=== PATIENT | female | born 1990 | race Caucasian/White ===

== ENCOUNTER 2019-07-19 10:55 | Inpatient (IN) | payer OTHER ==
[2019-07-19 11:20] VITALS: BMI 28.8
--- NOTE | 2019-07-19 12:17 | HP ---
CIWA Score - Admission Criteria [facility] Guidelines: Admission for Medically Managed Detox: Requires at least one of the followin. CIWA greater than 12 2. Seizures within the past 24 hours 3. Delirium tremens within the past 24 hours 4. Hallucinations within the past 24 hours 5. Acute intervention needed for co occurring medical disorder 6. Acute intervention needed for co occurring psychiatric disorder 7. Severe withdrawal that cannot be handled at a lower level of care (continued vomiting, continued diarrhea, abnormal vital signs) requiring intravenous medication and/or fluids 8. Admission ROS S - HPI Allergies/Adverse Reactions: Allergies Allergy/AdvReac Type Severity Reaction Status Date / Time No Known Allergies Allergy Verified 07/19/19 11:13 History of Present Illness: 29 y.o. TG M2F pt here requesting rehab from crystal methamphetamine since 3 years ago , iv since 1 yr ago ,latest use Monday cannabis - " not a lot " since age 18 tobacco : 06/29 ppd pmhx : hiv dx 2017 (rf=-st) clinic in [place] , not in [place] reports non- compliance w / meds , latest rx was in October 2018 while living in [place] , has been in [place] since and has not seen ID , on HRT [place] years ago pshx ; breast implants , nose surgery , liposuction ,left rib frx 1 yrs ago psych ; denies , denies current SI /HI . shx : lives in jail Exam Limitations: No Limitations - Ebola screening Have you traveled outside of the country in the last 21 days: No Have you had contact with anyone from an Ebola affected area: No Do you have a fever: No - Review of Systems Constitutional: Loss of Appetite EENT: reports: Other (myopia) Respiratory: reports: SOB with Exertion (x 1 year) Cardiac: reports: No Symptoms Reported GI: reports: No Symptoms Reported : reports: Other (hesitancy when using crystal metamphetamine) Musculoskeletal: reports: No Symptoms Reported Integumentary: reports: No Symptoms Reported Neuro: reports: No Symptoms reported Endocrine: reports: See HPI Hematology: reports: No Symptoms Reported Psychiatric: reports: Mood/Affect Appropiate, Orientated x3 Patient History - Smoking Cessation Smoking history: Current every day smoker Have you smoked in the past 12 months: Yes Hx Chewing Tobacco Use: No Initiated information on smoking cessation: Yes 'Breaking Loose' booklet given: 07/19/19 - Substances abused Methamphetamine Other (specify): crystal metamphetamine Substance route: Injection Frequency: Daily Amount used: 1.5grams Age of first use: 26 Date of last use: 07/16/19 Admission Physical Exam [facility] - Vital Signs Vital Signs: Vital Signs - 24 hr 07/19/19 11:09 Temperature 98.2 F Pulse Rate 85 Respiratory 18 Rate Blood Pressure 148/75 - Physical General Appearance: Yes: Mild Distress, Anxious HEENTM: Yes: EOMI, Hearing grossly Normal, Normocephalic, Normal Voice Respiratory: Yes: Chest Non-Tender, Lungs Clear, Normal Breath Sounds, No Respiratory Distress, No Accessory Muscle Use Neck: Yes: No masses,lesions,Nodules, Trachea in good position Cardiology: Yes: Regular Rhythm, Regular Rate, S1, S2 Abdominal: Yes: Normal Bowel Sounds, Non Tender, Soft Musculoskeletal: Yes: full range of Motion, Gait Steady Extremities: Yes: Normal Inspection, Normal Range of Motion, Non-Tender Neurological: Yes: Fully Oriented, Alert, Motor Strength 5/5, Normal Mood/Affect Integumentary: Yes: Warm, Track Ruiz (left forearm) - Diagnostic (1) 2,8-wklwntwru-5-methylamphetamine (DOM) use disorder, moderate Current Visit: Yes Status: Chronic (2) Nicotine dependence Current Visit: Yes Status: Chronic Qualifiers: Nicotine product type: cigarettes Breathalyzer - Breathalyzer Breathalyzer: 0 Urine Drug Screen - Test Device Lot number: [id number] Expiration date: 01/23/21 - Control Is test valid?: Yes - Results Drug screen NEGATIVE: No Urine drug screen results: THC-Marijuana, MET-Methamphetamine, AMP-Amphetamines Inpatient Rehab Admission - Rehab Decision to Admit Inpatient rehab admission?: Yes - Initial Determination Are CD services needed?: Yes Free of communicable disease: Yes Not in need of hospitalization: Yes - Rehab Admission Criteria Previous failed treatment: No Poor recovery environment: Yes Comorbidities: Yes Lacks judgement: Yes Patient is meeting Inpatient Rehab admission criteria:: Yes
[2019-07-19] MEDS ORDERED: MENTHOL/PHENOL 1 EACH UD MM PRN (12:32)
[2019-07-19] MEDS ORDERED: guaiFENesin 200 MG/10 ML 10 ML UNIT-DOSE CUPS PO PRN (12:32)
[2019-07-19] MEDS ORDERED: MAGNESIUM CITRATE 300 ML BOTTLE PO PRN (12:32)
[2019-07-19] MEDS ORDERED: ACETAMINOPHEN 325 MG TABLET (FP) PO PRN (12:32)
[2019-07-19] MEDS ORDERED: MAG HYDROX/AL HYDROX/SIMETH 30 ML UNIT-DOSE CUP PO PRN (12:32)
[2019-07-19] MEDS ORDERED: LOPERAMIDE HCL 2 MG CAPSULE PO PRN (12:32)
[2019-07-19] MEDS ORDERED: P-EPHED 60MG/TRIPROLIDI 2.5MG TABLET PO PRN (12:32)
[2019-07-19] MEDS ORDERED: NICOTINE POLACRILEX 2 MG GUM BUC PRN (12:32)
[2019-07-19] MEDS ORDERED: MAGNESIUM HYDROX 2400MG/30ML ORAL SUSPENSION 30 ML CUP PO PRN (12:32)
--- NOTE | 2019-07-19 14:03 | PN ---
[facility] Progress Note Note: PATIENT IS A TG (MALE TO FEMALE) PATIENT. ADMITTED TO [facility] FOR CRYSTAL METH/THC USE. PMH INCLUDES HIV + (NON COMPLIANT WITH TREATMENT) SINCE 2017. DOES NOT HAVE A REGULAR MD/PROVIDER IN COMMUNITY. CURRENTLY HOMELESS. Vital Signs Temperature 98.9 F 07/19/19 13:25 Pulse Rate 71 07/19/19 13:25 Respiratory Rate 18 07/19/19 13:25 Blood Pressure 117/76 07/19/19 13:25 O2 Sat by Pulse Oximetry (%) PE ALERT AND ORIENTED X 3 SKIN INTACT, WARM AND DRY HEENT: NORMOCEPHALIC, EOMS INTACT BL EXT FULL ROM, AMB AD JAVIER NO TREMORS A/P METHAMPHETAMINE/THC DEPENDENCE TG HIV+ CONTINUE REHAB LABS PENDING AT THIS TIME
[2019-07-19 14:25] LABS: HEMATOCRIT 40.2 % (32.4-45.2); HEMOGLOBIN 13.3 GM/dL (10.7-15.3); MCH 28.7 pg (25.7-33.7); MCHC 33.1 g/dl (32.0-36.0); MEAN CELL VOLUME 86.7 fl (80-96); MEAN PLT VOLUME 8.5 fl (7.5-11.1); PLATELET COUNT 402 K/MM3 (134-434); RBC 4.64 M/mm3 (3.60-5.2); RDW 14.3 % (11.6-15.6)
[2019-07-19 15:48] LABS: ALBUMIN 3.7 g/dl (3.4-5.0); BILIRUBIN,TOTAL 0.2 mg/dL (0.2-1); BLOOD UREA NITROGEN 8.6 mg/dL (7-18); CALCIUM 8.7 mg/dL (8.5-10.1); CREATININE 0.8 mg/dL (0.55-1.3); POTASSIUM 4.1 mmol/L (3.5-5.1); TOT PROT 7.2 g/dl (6.4-8.2)
[2019-07-19 15:53] LABS: RPR REACTIVE 1:2 (NONREACTIVE)
[2019-07-19] MEDS: THIAMINE HCL 100 MG TABLET (FP) PO SCH (21:19)
[2019-07-19] MEDS: MELATONIN 5 MG TABLETS PO PRN (21:19)
[2019-07-19] MEDS: hydrOXYzine PAMOATE 25 MG CAPSULE (FP) PO PRN (21:19)
[2019-07-20] MEDS: PRENATAL VITAMINS W/ FOLIC ACID TABLET (FP) PO SCH (09:08)
--- NOTE | 2019-07-20 10:41 | EKG ---
Test Reason : Blood Pressure : / mmHG Vent. Rate : 069 BPM Atrial Rate : 069 BPM P-R Int : 128 ms QRS Dur : 112 ms QT Int : 398 ms P-R-T Axes : 047 063 058 degrees QTc Int : 426 ms NORMAL SINUS RHYTHM WITH SINUS ARRHYTHMIA NON-SPECIFIC INTRA-VENTRICULAR CONDUCTION DELAY NO PREVIOUS ECGS AVAILABLE Confirmed by GIAN HOOK MD ([id number]) on 07/20/2019 10:41:25 AM Referred By: Confirmed By:GIAN HOOK MD
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
[2019-07-20 14:32] LABS: TREPONEMA ANTIBODY REACTIVE (NONREACTIVE)
[2019-07-20] MEDS: MELATONIN 5 MG TABLETS PO PRN (21:12)
[2019-07-20] MEDS: THIAMINE HCL 100 MG TABLET (FP) PO SCH (21:12)
[2019-07-20] MEDS: hydrOXYzine PAMOATE 25 MG CAPSULE (FP) PO PRN (21:12)
[2019-07-21] MEDS: PRENATAL VITAMINS W/ FOLIC ACID TABLET (FP) PO SCH (09:53)
[2019-07-21] MEDS: MELATONIN 5 MG TABLETS PO PRN (21:03)
[2019-07-21] MEDS: THIAMINE HCL 100 MG TABLET (FP) PO SCH (21:03)
[2019-07-21] MEDS: hydrOXYzine PAMOATE 25 MG CAPSULE (FP) PO PRN (21:05)
[2019-07-22] MEDS: PRENATAL VITAMINS W/ FOLIC ACID TABLET (FP) PO SCH (09:33)
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
[2019-07-22] MEDS ORDERED: PENICILLIN G BENZATHINE 2,400,000 UNIT/4 ML PFS IM ONE (14:30)
[2019-07-22] MEDS: THIAMINE HCL 100 MG TABLET (FP) PO SCH (21:53)
[2019-07-22] MEDS: hydrOXYzine PAMOATE 25 MG CAPSULE (FP) PO PRN (21:53)
[2019-07-22] MEDS: MELATONIN 5 MG TABLETS PO PRN (21:53)
[2019-07-23] MEDS: PRENATAL VITAMINS W/ FOLIC ACID TABLET (FP) PO SCH (09:40)
[2019-07-23] MEDS: IBUPROFEN 400 MG TABLET (FP) PO PRN (09:42)
--- NOTE | 2019-07-23 11:53 | PN ---
Psychiatric Progress Note Vital Signs: Vital Signs Period Temp Pulse Resp BP Sys/Davies Pulse Ox Last 24 Hr 97.9 F-98 F 86 16-19 127/80 Date of Session: 07/23/19 Chief Complaint:: 'I'm having trouble sleeping." HPI: Patient admitted to [facility] for Methamphetamine dependence. Consultation ordered for insomnia. ROS: Patient is calm, cooperative, alert +oriented x3. Current Medications: Active Medications Generic Name Dose Route Start Last Admin Trade Name Freq PRN Reason Stop Dose Admin Acetaminophen 650 mg 07/19/19 12:32 Tylenol - PO Q4H PRN FEVER Al Hydroxide/Mg Hydroxide 30 ml 07/19/19 12:32 07/20/19 22:21 Mylanta Oral Suspension - PO 30 ml Q6H PRN Administration DYSPEPSIA Eucalyptus/Menthol/Phenol/Sorbitol 1 each 07/19/19 12:32 Cepastat Lozenge - MM Q4H PRN SORE THROAT Guaifenesin 10 ml 07/19/19 12:32 Robitussin - PO Q6H PRN COUGH Hydroxyzine Pamoate 25 mg 07/19/19 12:32 07/22/19 21:53 Vistaril - PO 25 mg Q4H PRN Administration AGITATION Ibuprofen 400 mg 07/19/19 12:32 07/23/19 09:42 Motrin - PO 400 mg Q6H PRN Administration Pain level 4-6 Loperamide HCl 4 mg 07/19/19 12:32 Imodium - PO Q6H PRN DIARRHEA Magnesium Citrate 300 ml 07/19/19 12:32 Citroma - PO Q48H PRN CONSTIPATION Magnesium Hydroxide 30 ml 07/19/19 12:32 Milk Of Magnesia - PO DAILY PRN CONSTIPATION Melatonin 5 mg 07/19/19 22:00 07/22/19 21:53 Melatonin PO 5 mg HS PRN Administration INSOMNIA Nicotine Polacrilex 2 mg 07/19/19 12:32 07/20/19 09:44 Nicorette Gum - BUC 2 mg Q2H PRN Administration NICOTINE REPLACEMENT RX Penicillin G Benzathine 2,400,000 unit 07/29/19 10:00 Bicillin L-A - IM 08/05/19 10:01 MO@1000 COOPER Multivit/Folic Acid/Iron 1 tab 07/20/19 10:00 07/23/19 09:40 Vitamins (Sjr) - PO 1 tab DAILY COOPER Administration Pseudoephedrine/Triprolidine 1 combo 07/19/19 12:32 Actifed - PO TID PRN NASAL CONGESTION Thiamine HCl 100 mg 07/19/19 22:00 07/22/19 21:53 Vitamin B1 - PO 100 mg HS COOPER Administration Medication(s) Change(s): Yes. Will order Belsomra 10mg HS PRN. Current Side Effect: No Lab tests ordered: No Lab tests reviewed: Yes Provider note:: Patient reports difficulty sleeping through the night. States the melatonin is not very effective. Will order Belsomra 10mg HS. Patient also educated on the importance of proper sleep hygiene. Benefits and side effects discussed. Verbal consent given. Total face to face time:: 20 Mental Status Exam - Mental Status Exam Alert and Oriented to: Time, Place, Person Cognitive Function: Good Patient Appearance: Well Groomed Mood: Euthymic Affect: Appropriate Patient Behavior: Appropriate, Cooperative Speech Pattern: Clear, Appropriate Voice Loudness: Normal Thought Process: Intact, Goal Oriented Thought Disorder: Not Present Hallucinations: Denies Suicidal Ideation: Denies Homicidal Ideation: Denies Insight/Judgement: Poor Sleep: Poorly Appetite: Fair Muscle strength/Tone: Normal Gait/Station: Normal Psychiatric Treatment Plan - Problem List (1) 2,0-mdnlzpwvp-1-methylamphetamine (DOM) use disorder, moderate Current Visit: Yes (2) Nicotine dependence Current Visit: Yes Qualifiers: Nicotine product type: cigarettes (3) Substance-induced sleep disorder Current Visit: Yes
[2019-07-23] MEDS: THIAMINE HCL 100 MG TABLET (FP) PO SCH (21:37)
[2019-07-23] MEDS: hydrOXYzine PAMOATE 25 MG CAPSULE (FP) PO PRN (21:37)
[2019-07-23] MEDS: MELATONIN 5 MG TABLETS PO PRN (21:38)
[2019-07-23] MEDS: SUVOREXANT 10 MG TABLET PO PRN (21:38)
[2019-07-24] MEDS: PRENATAL VITAMINS W/ FOLIC ACID TABLET (FP) PO SCH (09:00)
[2019-07-24] MEDS: IBUPROFEN 400 MG TABLET (FP) PO PRN (09:00)
[2019-07-24] MEDS: NICOTINE 14 MG/24 HOURS TOPICAL PATCH TD SCH (09:01)
[2019-07-24] MEDS: THIAMINE HCL 100 MG TABLET (FP) PO SCH (21:34)
[2019-07-24] MEDS: MELATONIN 5 MG TABLETS PO PRN (21:34)
[2019-07-24] MEDS: hydrOXYzine PAMOATE 25 MG CAPSULE (FP) PO PRN (21:34)
[2019-07-24] MEDS: SUVOREXANT 10 MG TABLET PO PRN (21:35)
[2019-07-25] MEDS: PRENATAL VITAMINS W/ FOLIC ACID TABLET (FP) PO SCH (09:55)
[2019-07-25] MEDS: NICOTINE 14 MG/24 HOURS TOPICAL PATCH TD SCH (09:56)
--- NOTE | 2019-07-25 15:20 | PN ---
S Progress Note (SOAP) Subjective: Transgender female, has not had her hormones since she was admitted. She is also HIV positive, however, she has not been on her regimen since she moved to [facility] Objective: General: no apparent distress HEENTM: normocephalic, PERRLA Neck: supple, Lungs:clear Heart: s1 s2 Skin: facial hair shadow 07/25/19 15:15 07/25/19 15:16 Assessment: Feminization with hormonal treatment needed. HIV infection. 07/25/19 15:17 07/25/19 15:20 Plan: Spirodactone 100mg once a day ordered. BP is low, hold if BP <110, patient aware and agrees Estradiol 4mg/day ordered. Patient agreed with plan. Will continue to monitor HIV_Patient was referred to an HIV program that will provide hormonal treatment and primary care.
[2019-07-25] MEDS: hydrOXYzine PAMOATE 25 MG CAPSULE (FP) PO PRN (21:31)
[2019-07-25] MEDS: THIAMINE HCL 100 MG TABLET (FP) PO SCH (21:31)
[2019-07-25] MEDS: MELATONIN 5 MG TABLETS PO PRN (21:32)
[2019-07-25] MEDS: SUVOREXANT 10 MG TABLET PO PRN (21:32)
[2019-07-26] MEDS ORDERED: PT OWN MED DRAWER 7, Y5N ONE (08:13)
[2019-07-26] MEDS: SPIRONOLACTONE 25 MG TABLET (FP) PO SCH (09:51)
[2019-07-26] MEDS: NICOTINE 14 MG/24 HOURS TOPICAL PATCH TD SCH (09:52)
[2019-07-26] MEDS: PRENATAL VITAMINS W/ FOLIC ACID TABLET (FP) PO SCH (09:52)
[2019-07-26] MEDS ORDERED: ESTRADIOL 2 MG TABLET (NON-FORMULARY) PO SCH (10:00)
[2019-07-26] MEDS ORDERED: SPIRONOLACTONE 25 MG TABLET (FP) PO SCH (10:00)
[2019-07-26] MEDS ORDERED: COLLOIDAL OATMEAL 1 BAR EACH TP PRN (10:40)
--- NOTE | 2019-07-26 18:58 | PN ---
S Progress Note Note: Psychiatry Attending's note : Belsomra not renewed.
[2019-07-26] MEDS: THIAMINE HCL 100 MG TABLET (FP) PO SCH (21:34)
[2019-07-26] MEDS: MELATONIN 5 MG TABLETS PO PRN (21:35)
[2019-07-26] MEDS: hydrOXYzine PAMOATE 25 MG CAPSULE (FP) PO PRN (21:36)
[2019-07-27] MEDS: hydrOXYzine PAMOATE 25 MG CAPSULE (FP) PO PRN (01:46)
[2019-07-27] MEDS: SPIRONOLACTONE 25 MG TABLET (FP) PO SCH (10:45)
[2019-07-27] MEDS: NICOTINE 14 MG/24 HOURS TOPICAL PATCH TD SCH (10:45)
[2019-07-27] MEDS: PRENATAL VITAMINS W/ FOLIC ACID TABLET (FP) PO SCH (10:45)
[2019-07-27] MEDS ORDERED: HYDROCORTISONE 1% TOPICAL OINT 30 GM TUBE TP PRN (11:49)
--- NOTE | 2019-07-27 11:52 | PN ---
S Progress Note Note: TC from MABEL Moss- patient with rash from adhesive from nicotine patch - will DC patch, order hytone cream topical prn for rash and add to allergy list - has nicotine gum ordered
--- NOTE | 2019-07-27 18:48 | PN ---
[facility] Progress Note Note: Psychiatry Attending's note : Reconsult requested. Reason : insomnia. Met with patient. In the presence of MABEL Gao. Sleep hygiene principles discussed in session. Patient requests benadryl. Side effects/benefits discussed. Vistaril discontinued. Benadryl 50 mg po hs prn. Ordered. Verbal consent obtained from the patient.
[2019-07-27] MEDS: MELATONIN 5 MG TABLETS PO PRN (21:04)
[2019-07-27] MEDS: THIAMINE HCL 100 MG TABLET (FP) PO SCH (21:04)
[2019-07-27] MEDS: diphenhydrAMINE HCL 25 MG CAPSULE (FP) PO PRN (21:05)
[2019-07-28] MEDS: SPIRONOLACTONE 25 MG TABLET (FP) PO SCH (10:02)
[2019-07-28] MEDS: PRENATAL VITAMINS W/ FOLIC ACID TABLET (FP) PO SCH (10:02)
[2019-07-28] MEDS: MELATONIN 5 MG TABLETS PO PRN (21:15)
[2019-07-28] MEDS: THIAMINE HCL 100 MG TABLET (FP) PO SCH (21:15)
[2019-07-28] MEDS: diphenhydrAMINE HCL 25 MG CAPSULE (FP) PO PRN (21:16)
[2019-07-29] MEDS ORDERED: PT OWN MED DRAWER 7, Y5N ONE (08:35)
[2019-07-29] MEDS: PRENATAL VITAMINS W/ FOLIC ACID TABLET (FP) PO SCH (09:40)
[2019-07-29] MEDS: SPIRONOLACTONE 25 MG TABLET (FP) PO SCH (09:40)
[2019-07-29] MEDS ORDERED: PENICILLIN G BENZATHINE 2,400,000 UNIT/4 ML PFS IM SCH (10:00)
[2019-07-29] MEDS: IBUPROFEN 400 MG TABLET (FP) PO PRN ×2 (12:05→23:59)
[2019-07-29] MEDS: ESTRADIOL 2 MG TABLET (NON-FORMULARY) PO SCH (14:03)
[2019-07-29] MEDS: THIAMINE HCL 100 MG TABLET (FP) PO SCH (21:53)
[2019-07-29] MEDS: MELATONIN 5 MG TABLETS PO PRN (21:54)
[2019-07-29] MEDS: PRAMOXINE HCL/MINERAL OIL/ZNOX 30 GM TUBE RC SCH (21:54)
[2019-07-30] MEDS ORDERED: PT OWN MED DRAWER 7, Y5N ONE ×4 (06:17→18:52)
[2019-07-30] MEDS: SPIRONOLACTONE 25 MG TABLET (FP) PO SCH (06:27)
[2019-07-30] MEDS: PRENATAL VITAMINS W/ FOLIC ACID TABLET (FP) PO SCH (10:00)
[2019-07-30] MEDS: ESTRADIOL 2 MG TABLET (NON-FORMULARY) PO SCH (10:55)
[2019-07-30] MEDS: IBUPROFEN 400 MG TABLET (FP) PO PRN (15:45)
[2019-07-30] MEDS: THIAMINE HCL 100 MG TABLET (FP) PO SCH (21:01)
[2019-07-30] MEDS: MELATONIN 5 MG TABLETS PO PRN (21:01)
[2019-07-30] MEDS: diphenhydrAMINE HCL 25 MG CAPSULE (FP) PO PRN (21:01)
[2019-07-30] MEDS: PRAMOXINE HCL/MINERAL OIL/ZNOX 30 GM TUBE RC SCH (21:02)
[2019-07-31] MEDS ORDERED: PT OWN MED DRAWER 7, Y5N ONE ×2 (06:25→08:42)
[2019-07-31] MEDS: SPIRONOLACTONE 25 MG TABLET (FP) PO SCH (06:36)
[2019-07-31] MEDS: PRENATAL VITAMINS W/ FOLIC ACID TABLET (FP) PO SCH (09:17)
[2019-07-31] MEDS: ESTRADIOL 2 MG TABLET (NON-FORMULARY) PO SCH (09:17)
[2019-07-31] MEDS: IBUPROFEN 400 MG TABLET (FP) PO PRN (10:50)
--- NOTE | 2019-07-31 13:11 | PN ---
[facility] Progress Note Note: Pt c/o neck pain x 2 days. denies truama. Vital Signs - 24 hr 07/31/19 07/31/19 07/31/19 00:33 03:29 06:33 Temperature 97.9 F Pulse Rate 89 Respiratory 18 18 18 Rate Blood Pressure 112/71 Alert o x 3 nad oob ambulating with steady gait Neck:supple,no jvd; Active ROM all sides but minimal deficit noted, left>right. A/P Neck pain Robaxin 500 mg po TID prn Motrin prn Analgesic balm apply as directed. Warm compress as needed.
[2019-07-31] MEDS: METHOCARBAMOL 500 MG TABLET PO PRN ×2 (14:16→23:08)
[2019-07-31] MEDS: METHYL SALICYLATE/MENTHOL OINT 30 GM TUBE TP SCH ×2 (14:45→21:24)
[2019-07-31] MEDS: diphenhydrAMINE HCL 25 MG CAPSULE (FP) PO PRN (21:23)
[2019-07-31] MEDS: MELATONIN 5 MG TABLETS PO PRN (21:23)
[2019-07-31] MEDS: THIAMINE HCL 100 MG TABLET (FP) PO SCH (21:23)
[2019-07-31] MEDS: PRAMOXINE HCL/MINERAL OIL/ZNOX 30 GM TUBE RC SCH (21:24)
[2019-08-01] MEDS ORDERED: PT OWN MED DRAWER 7, Y5N ONE (06:20)
[2019-08-01] MEDS: SPIRONOLACTONE 25 MG TABLET (FP) PO SCH (06:50)
--- NOTE | 2019-08-01 10:00 | PN ---
S Progress Note Note: Patient to be discharged on Monday, medications prescribed and transmitted to the patient's pharmacy of choice.
--- NOTE | 2019-08-01 10:01 | DS ---
[facility] Rehab Discharge Summary - [facility] Rehab Discharge Summary Admission Date: 07/19/19 Discharge Date: 08/01/19 - History Additional Comments: crystal methamphetamine use Pertinent Past History: 29 y.o. TG M2F ptfor rehab from crystal methamphetamine since 3 years ago, IV since 1 yr ago cannabis - " not a lot " since age 18 tobacco : 06/29 ppd pmhx : hiv dx 2017;reports non- compliance w/ meds , latest rx was in October 2018 while living in [place]; on HRT [place]- [place] years ago pshx ; breast implants , nose surgery , liposuction ,left rib frx 1 yrs ago psych ; denies , denies current SI /HI . shx : lives in residential - Discharge Physical Exam Vital Signs: Vital Signs Temperature 98.3 F 08/01/19 06:50 Pulse Rate 87 08/01/19 06:50 Respiratory Rate 18 08/01/19 06:50 Blood Pressure 124/73 08/01/19 06:50 O2 Sat by Pulse Oximetry (%) Pertinent Admission Physical Exam Findings: Physical General Appearance: no apparent distress HEENTM: Normocephalic, Respiratory: Lungs Clear, Neck: Trachea in good position Cardiology: S1, S2 Abdominal: +Bowel Sounds, Non Tender, Soft Musculoskeletal: Yfull range of Motion, Gait Steady Neurological: CN2-12 intact Integumentary: Track Ruiz (left forearm) - Treatment Discharge Condition: Outpatient referral accepted (patient will go to [facility] for medical care, substance abuse aftercare, and transgender care. medically stable for discharge.) Hospital Course: Patient attended groups, had 1:1 with her provider, was seen by psychiatric service. She is a transgender female, and medications to support her gender were ordered while she was in rehab. She has been off her HIV regimen; the patient was counseled regarding the need for medication and recommendations for appropriate services were made by this provider. - Medication Discharge Medications: Ambulatory Orders Bictegrav/Emtricit/Tenofov Ala [Biktarvy 50-200-25 mg Tablet] 1 each PO DAILY Estradiol [Estradiol (Non-Formulary)] 4 mg PO DAILY #14 tablet 08/01/19 Spironolactone [Aldactone -] 100 mg PO DAILY@0700 #14 tablet 08/01/19 - Medication-Assisted Treatment (MAT) Medication-Assisted Treatment (MAT): No - Discharge Instructions Diet, activity, other medical instructions: Diet: as tolerated Activity: as tolerated Other medical instructions: Please follow up with aftercare instructions and keep appointment at [facility] on 08/11/2019 - Diagnosis (1) 2,6-krrtptpxc-5-methylamphetamine (DOM) use disorder, moderate Current Visit: Yes Status: Chronic - Follow-up Referral Minutes to complete discharge: 17 - AMA Did Patient Leave Against Medical Advice: No Additional Comments: Medication prescriptions transmitted to pharmacy.
[2019-08-01] MEDS: PRENATAL VITAMINS W/ FOLIC ACID TABLET (FP) PO SCH (10:07)
[2019-08-01] MEDS: ESTRADIOL 2 MG TABLET (NON-FORMULARY) PO SCH (10:08)
[2019-08-01] MEDS: METHYL SALICYLATE/MENTHOL OINT 30 GM TUBE TP SCH ×2 (10:08→21:17)
[2019-08-01] MEDS: THIAMINE HCL 100 MG TABLET (FP) PO SCH (21:15)
[2019-08-01] MEDS: MELATONIN 5 MG TABLETS PO PRN (21:15)
[2019-08-01] MEDS: PRAMOXINE HCL/MINERAL OIL/ZNOX 30 GM TUBE RC SCH (21:16)
[2019-08-01] MEDS: METHOCARBAMOL 500 MG TABLET PO PRN (21:16)
[2019-08-01] MEDS: diphenhydrAMINE HCL 25 MG CAPSULE (FP) PO PRN (21:17)
[2019-08-02] MEDS ORDERED: PT OWN MED DRAWER 7, Y5N ONE ×2 (06:17→08:17)
[2019-08-02] MEDS: SPIRONOLACTONE 25 MG TABLET (FP) PO SCH (06:43)
[2019-08-02 07:10] VITALS: BP 125/74; PULSE 88; TEMP 97.8
--- NOTE | 2019-08-02 08:23 | PN ---
S Progress Note Note: Pt i a 29 y/o transgender male to female admitted to rehab and discharging today as scheduled. Vital Signs - 24 hr 08/02/19 08/02/19 08/02/19 00:30 03:30 06:38 Temperature 97.8 F Pulse Rate 88 Respiratory 17 17 18 Rate Blood Pressure 125/74 Alert o x 3 nad oob ambulating with steady gait. A/P medically stable D/c as scheduled follow up with CD aftercare and primary care as recommended.
== END 2019-08-02 08:38 | disposition home or self-care (01) | DRG 772 ==
LOC: YASAS 10:55 → Y3E 12:51
PROVIDERS: ADMIT Allergy & Immunology; ATTEND Allergy & Immunology
PROC: HZ42ZZZ Group Counseling for Substance Abuse Treatment, Cognitive-Behavioral (ICD-10-PCS; principal; 2019-07-19)
DX: F15.20 Other stimulant dependence, uncomplicated (principal); F12.20 Cannabis dependence, uncomplicated; F17.210 Nicotine dependence, cigarettes, uncomplicated; F19.282 Other psychoactive substance dependence with psychoactive substance-induced sleep disorder; F64.1 Dual role transvestism; Z21 Asymptomatic human immunodeficiency virus [HIV] infection status; R21 Rash and other nonspecific skin eruption; Z91.048 Other nonmedicinal substance allergy status; Z86.19 Personal history of other infectious and parasitic diseases; Z91.14 Patient's other noncompliance with medication regimen; Z91.5 Personal history of self-harm; Z91.410 Personal history of adult physical and sexual abuse; Z59.0 Homelessness
CPT/HCPCS: 36415; 71046-TC-FY; 80053; 81025; 85027; 86593; 86780; 93005; 93010